=== PATIENT | female | born 1975 ===

== ENCOUNTER 2017-07-02 13:08 | Outpatient (CLI) | payer OTHER ==
--- NOTE | 2017-07-03 09:10 | XRay Report ---
KUB: Pain. There is a focally gas-filled dilated loop of small bowel in the left midabdomen. The bowel pattern is not otherwise remarkable. No evidence of free air. No renal calculus identified. Normal bony structures. Impression: Nonspecific focal small bowel dilatation. This may be transient.
== END 2017-07-02 13:09 | disposition home or self-care (01) ==
LOC: SPVIMAG 13:08
PROVIDERS: ATTEND Internal Medicine
DX: R10.9 Unspecified abdominal pain (principal)
CPT/HCPCS: 74000